=== PATIENT | female | born 1995 | race Caucasian/White ===

== ENCOUNTER 2022-04-05 14:20 | Emergency (ER) | payer OTHER, SELFPAY ==
[2022-04-05] MEDS ORDERED: Ibuprofen 800 MG TAB ONE (14:59)
== END 2022-04-05 15:37 | disposition home or self-care (01) ==
LOC: NAV ERS 14:20
DX: S39.012A Strain of muscle, fascia and tendon of lower back, initial encounter (principal); S20.212A Contusion of left front wall of thorax, initial encounter; V43.52XA Car driver injured in collision with other type car in traffic accident, initial encounter
CPT/HCPCS: 72100; 99283